=== PATIENT | male | born 1980 | race Caucasian/White ===

== ENCOUNTER 2020-04-23 03:18 | Inpatient (IN) | payer OTHER ==
[~2020-04-23] VITALS: Ht 188 cm; Wt 135.4 kg
[2020-04-23] MEDS ORDERED: NO HOME MEDS (03:35)
[2020-04-23] MEDS ORDERED: morphine 4 MG/ML inj SYRINge IV ONE (03:40)
[2020-04-23] MEDS ORDERED: morphine 2 MG/ML inj. syringe IV PRN (04:25)
--- NOTE | 2020-04-23 06:28 | NUR ---
DR. Carpenter AT BEDSIDE.
--- NOTE | 2020-04-23 06:40 | NUR ---
Patient in room ED 8. I have received report from Lidya in the Ed and had the opportunity to ask questions and assume patient care.
--- NOTE | 2020-04-23 06:54 | NUR ---
Pt arrived to the floor, tucked in
[2020-04-23 06:55] VITALS: BP 150/89
[2020-04-23] MEDS: normal saline 1000ml 1,000 ML IV SCH ×2 (07:20→16:23)
[2020-04-23] MEDS: piperacillin/tazo 3.375gm/50ml 50 ML IV SCH ×2 (08:17→16:20)
[2020-04-23 09:39] LABS: BASOPHILS % (AUTO) 0.3 % (0-1); EOSINOPHILS % (AUTO) 0.1 % (0-6); HEMATOCRIT 42.5 % (42.0-52.0); HEMOGLOBIN 14.4 g/dl (14.0-17.9); LYMPHOCYTES # (AUTO) 0.6 X10'3 (1.1-4.8); LYMPHOCYTES % (AUTO) 5.9 % (21-51); MEAN CORPUSCULAR HEMOGLOBIN 33.1 PG (27.0-31.0); MEAN CORPUSCULAR HGB CONC 33.9 g/dL (33.0-36.5); MEAN CORPUSCULAR VOLUME 97.6 FL (78-98); MEAN PLATELET VOLUME 9.3 FL (7.4-10.4); MONOCYTES # (AUTO) 1.1 X10'3 (0-0.9); MONOCYTES % (AUTO) 10.6 % (2-12); NEUTROPHILS # (AUTO) 8.7 X10'3 (1.8-7.7); NEUTROPHILS % (AUTO) 83.1 % (42-75); PLATELET COUNT 184 X10'3 (140-440); RED BLOOD COUNT 4.35 X10'6 (4.70-6.10); WHITE BLOOD COUNT 10.4 X10'3 (4.5-11.0)
[2020-04-23 10:00] VITALS: BP 130/78
[2020-04-23 10:09] LABS: ALANINE AMINOTRANSFERASE 25 U/L (12-78); ALBUMIN 2.6 G/DL (3.4-5.0); ALBUMIN/GLOBULIN RATIO 0.7 (1.1-1.5); ALKALINE PHOSPHATASE 49 IU/L (46-116); ANION GAP 5 (8-16); ASPARTATE AMINO TRANSFERASE 14 U/L (10-37); BILIRUBIN,TOTAL 0.8 MG/DL (0.1-1.0); BLOOD UREA NITROGEN 10 MG/DL (7-18); BUN/CREATININE RATIO 9.3 (5.4-32.0); CALCIUM 8.1 MG/DL (8.5-10.1); CHLORIDE 102 MMOL/L (99-107); CREATININE 1.07 MG/DL (0.60-1.10); GLUCOSE 122 MG/DL (70-104); POTASSIUM 3.6 MMOL/L (3.5-5.1); SODIUM 136 MMOL/L (135-145); TOTAL CARBON DIOXIDE 28.6 MMOL/L (24-32); TOTAL PROTEIN 6.5 G/DL (6.4-8.2); eGFR 77 ML/MIN
[2020-04-23] MEDS ORDERED: HYDROmorphone inj. 0.5 MG/0.5 ML DISP.SYRIN IV PRN (11:00)
[2020-04-23] MEDS: HYDROmorphone 1 mg/ml syringe IV PRN ×3 (11:13→19:15)
[2020-04-23] MEDS ORDERED: iohexol 300mg/ml 100ml inj. ONE (11:23)
--- NOTE | 2020-04-23 12:24 | NUR ---
PAGER ID: [phone] MESSAGE: [id number] Vicki Anglin- Radiologist Mabel- critical finding will like to speak with you STAT- [phone]. Mer [id number]
--- NOTE | 2020-04-23 12:24 | NUR ---
Received call from Radiology with a critical finding. Paged Dr. Shelton with the number of radiologist Mabel .
[2020-04-23] MEDS: acetaminophen 325mg tablet PO PRN ×2 (16:38→22:03)
[2020-04-23 17:00] VITALS: BP 143/98
--- NOTE | 2020-04-23 18:16 | NUR ---
Problems reprioritized. Patient report given, questions answered & plan of care reviewed with Ignacio.
[2020-04-23 18:46] VITALS: BP 161/94
[2020-04-23 19:31] LABS: PARTIAL THROMBOPLASTIN TIME 29 SECONDS (22-32)
[2020-04-23] MEDS: lactobacillus rhamnosus 10,000 MMU CELLS/CAPSULE PO SCH (20:00)
[2020-04-23 22:00] VITALS: BP 161/94
[2020-04-23] MEDS ORDERED: midazolam 2 mg/2 ml injection ONE (22:37)
[2020-04-23] MEDS ORDERED: fentaNYL /PF 50mcg/ml 5ml ampule ONE (22:37)
[2020-04-23] MEDS ORDERED: rocuronium 10mg/ml inj IV ONE ×3 (22:38→23:17)
[2020-04-23] MEDS ORDERED: dexamethasone sod phosphate 10mg/ml inj ONE (22:38)
[2020-04-23] MEDS ORDERED: sevoflurane 250ml liquid IH ONE (22:38)
[2020-04-23] MEDS ORDERED: albumin (Human) 5% 250ml BOTTLE IV ONE (22:38)
[2020-04-23] MEDS ORDERED: LIDOcaine 2% 5ml jelly ONE (22:58)
[2020-04-23] MEDS ORDERED: propofol inj 20 ML IV ONE (22:58)
[2020-04-23] MEDS ORDERED: LIDOcaine 2% (20mg/ml) 5ml vial ONE (22:58)
[2020-04-23] MEDS ORDERED: famotidine/PF 10 mg/ml inj IV ONE (23:04)
[2020-04-23] MEDS ORDERED: morphine 10mg/ml inj. ONE (23:42)
[2020-04-24] VITALS (22 sets, daily range): BP systolic 132–172; BP diastolic 82–108
[2020-04-24] MEDS ORDERED: sugammadex 200mg/2ml injection IV ONE (00:56)
[2020-04-24] MEDS ORDERED: BUPIVAcaine/PF 2.5 mg/ml (0.25%) 30ml vial ONE (01:08)
[2020-04-24] MEDS ORDERED: BUPIVACAINE liposomal/PF 13.3 MG/ML vial IM ONE (01:08)
[2020-04-24] MEDS ORDERED: meperidine/PF 25mg/ml syringe ONE (01:58)
--- NOTE | 2020-04-24 02:00 | NUR ---
PATIENT ARRIVES FROM O.R. - CONNECTED TO MONITOR, 10 L SIMPLE MASK. VSS, EASILY AROUSABLE BUT VERY GROGGY. MOVES X 4 NO C/O PAIN OR RESP. DISTRESS, AFEBRILE BUT DIAPHORETIC. PATIENT C/O BEING TOO HOT. NORMOTHERMIC, BLANKETS REMOVED AND ROOM TEMP TURNED DOWN WELL FAN IN ROOM. COOL CLOTH TO FORE-HEAD. DENIES PAIN OR NAUSEA . ABDOMINAL DRESSING FROM O.R. IS CDI, NO VISABLE SHADOWING ON THE DRESSING. ABDOMEN MILDLY DISTENDED. TENDER TO TOUCH. CHRISTOS DRAIN X1 FROM BENEATH THE DRESSING. 100 ML SERO/SANGUANOUS EMPTIED. LEFT NARE NGT TO LWSXN PER ORDER - SMALL AMOUNT BLOODY DRAINAGE. PER REPORT FROM O.RJanina RN, HICKMAN WAS RECENTLY PLACED BEFORE COMING TO ICU. PIV X 2. NS IVMF AT 150 ML/HR VIA LEFT HAND # 20 PIV. RIGHT A/C PIV PLACED AT [facility] - NO COLOR SO UNK GAUGE. FLUSHED WITHOUT DIFFICULTY, CLAMPED AND CAPPED. BACK INTACT. SMEAR BROWN STOOL . OPTIFOAM TO COCCYX FOR PROTECTION. 2 RN SKIN ASSESSMENT UPON TRANSFER COMPLETED. BELONGINGS LIST UP ON TRANSFER COMPLETE. ICU ROUTINE EXPLAINED. ALL QUESTIONS ANSWERED. SUPPORT GIVEN. FREQUENTLY REORIENTED AFTER WAKING FROM SLEEP DUE TO SLIGHTLY CONFUSED FOR A MOMENT UPON WAKING.
[2020-04-24] MEDS ORDERED: acetaminophen 1,000mg/100ml IV 100 ML IV PRN ×2 (02:05→11:15)
[2020-04-24] MEDS ORDERED: ringers solution, lacted 1,000 ML IV SCH (02:05)
[2020-04-24] MEDS ORDERED: meperidine/PF 25mg/ml syringe IV PRN ×3 (02:05)
[2020-04-24] MEDS ORDERED: ondansetron/PF 4mg/2ml inj IV PRN (02:05)
[2020-04-24] MEDS ORDERED: hydrALAZINE 20mg/ml inj. IV PRN (02:05)
[2020-04-24] MEDS ORDERED: labetalol 20mg/4ml (5mg/ml) syringe IV PRN (02:05)
[2020-04-24] MEDS ORDERED: proCHLORperazine 10 MG/2 ml inj IV PRN (02:05)
[2020-04-24] MEDS ORDERED: morphine 4 MG/ML inj SYRINge IV PRN (02:05)
[2020-04-24] MEDS ORDERED: morphine 2 MG/ML inj. syringe IV PRN (02:05)
[2020-04-24] MEDS: normal saline 1000ml 1,000 ML IV SCH ×4 (02:31→21:24)
[2020-04-24] MEDS: ondansetron/PF 4mg/2ml inj IV PRN ×3 (02:41→19:03)
[2020-04-24] MEDS: HYDROmorphone 1 mg/ml syringe IV PRN ×6 (02:52→23:52)
[2020-04-24] MEDS: piperacillin/tazo 3.375gm/50ml 50 ML IV SCH ×4 (03:32→23:54)
[2020-04-24 05:30] LABS: BASOPHILS # (AUTO) 0.1 X10'3 (0-0.2); BASOPHILS % (AUTO) 0.6 % (0-1); EOSINOPHILS % (AUTO) 0 % (0-6); HEMATOCRIT 45.7 % (42.0-52.0); HEMOGLOBIN 15.1 g/dl (14.0-17.9); LYMPHOCYTES # (AUTO) 0.5 X10'3 (1.1-4.8); LYMPHOCYTES % (AUTO) 4.8 % (21-51); MEAN CORPUSCULAR HEMOGLOBIN 32.8 PG (27.0-31.0); MEAN CORPUSCULAR VOLUME 99.2 FL (78-98); MEAN PLATELET VOLUME 9.5 FL (7.4-10.4); MONOCYTES # (AUTO) 0.8 X10'3 (0-0.9); MONOCYTES % (AUTO) 7.9 % (2-12); NEUTROPHILS # (AUTO) 8.3 X10'3 (1.8-7.7); NEUTROPHILS % (AUTO) 86.7 % (42-75); PLATELET COUNT 182 X10'3 (140-440); RED CELL DISTRIBUTION WIDTH 13.4 % (11.5-14.5); WHITE BLOOD COUNT 9.6 X10'3 (4.5-11.0)
[2020-04-24 05:50] LABS: ALANINE AMINOTRANSFERASE 18 U/L (12-78); ALBUMIN 2.1 G/DL (3.4-5.0); ALBUMIN/GLOBULIN RATIO 0.6 (1.1-1.5); ALKALINE PHOSPHATASE 43 IU/L (46-116); ANION GAP 8 (8-16); ASPARTATE AMINO TRANSFERASE 12 U/L (10-37); BILIRUBIN,TOTAL 0.6 MG/DL (0.1-1.0); BLOOD UREA NITROGEN 10 MG/DL (7-18); BUN/CREATININE RATIO 10.2 (5.4-32.0); CALCIUM 7.5 MG/DL (8.5-10.1); CHLORIDE 107 MMOL/L (99-107); CREATININE 0.98 MG/DL (0.60-1.10); GLUCOSE 154 MG/DL (70-104); POTASSIUM 3.7 MMOL/L (3.5-5.1); SODIUM 139 MMOL/L (135-145); TOTAL CARBON DIOXIDE 23.9 MMOL/L (24-32); TOTAL PROTEIN 5.5 G/DL (6.4-8.2); eGFR 86 ML/MIN
--- NOTE | 2020-04-24 06:14 | NUR ---
Patient in room ICU 2039. I have received report from Cody LANDEROS and had the opportunity to ask questions and assume patient care.
[2020-04-24] MEDS: lactobacillus rhamnosus 10,000 MMU CELLS/CAPSULE PO SCH ×2 (07:35→19:03)
[2020-04-24] MEDS: fluconazole-Diflucan 200mg/NS 100 ML IV SCH (10:27)
[2020-04-24] MEDS ORDERED: acetaminophen 650mg rectal suppository RC PRN (11:15)
--- NOTE | 2020-04-24 11:25 | NUR ---
Pt transferred from [facility] for evaluation of diverticulitis with microperforation and abscess per H&P. Pt s/p lysis of adhesions and sigmoid resection with colostomy 04/23. Pt would benefit from colostomy nutrition therapy education once stable. Per [employer] notes pt was successfully extubated per anesthesia prior to transferring to critical care. Pt currently NPO, recommend diet advancement to low fiber/low residue as medically indicated in view of recent GI surgery. Will continue to follow and provide education once appropriate. Recommendations: 1) Advance to low fiber/low residue diet as medically indicated in view of recent GI surgery 2) Scaled weights per rx 3) Colostomy nutrition therapy education once stable Addendum: 04/24/20 at [address] Amended: Links added.
[2020-04-24] MEDS ORDERED: ibuprofen tablet 400 MG TABLET PO PRN (12:05)
--- NOTE | 2020-04-24 17:04 | NUR ---
Received report from LETI Broussard. awaiting patient arrival.
--- NOTE | 2020-04-24 17:10 | NUR ---
Problems reprioritized. Patient report given, questions answered & plan of care reviewed with Radha LANDEROS.
--- NOTE | 2020-04-24 17:26 | NUR ---
patient arrived to floor. vss, no complaints of pain. dressings CDI. CHRISTOS bulb emptied, FC emptied.
--- NOTE | 2020-04-24 18:24 | NUR ---
Problems reprioritized. Patient report given, questions answered & plan of care reviewed with LETI Pierre.
[2020-04-25] VITALS: BP 152/96
[2020-04-25] MEDS: ondansetron/PF 4mg/2ml inj IV PRN ×2 (03:00→09:35)
[2020-04-25] MEDS: HYDROmorphone 1 mg/ml syringe IV PRN ×2 (03:42→08:22)
[2020-04-25] MEDS: normal saline 1000ml 1,000 ML IV SCH ×4 (03:45→22:54)
--- NOTE | 2020-04-25 03:47 | NUR ---
Patient refused to have santacruz catheter remain. Educated on risks of premature removal and patient verbalized understanding and still requested it be removed. Deflated 10ml out of balloon and removed. Patient was instructed on safe urinal use. Will continue to monitor.
[2020-04-25 05:19] LABS: BASOPHILS % (AUTO) 0.2 % (0-1); EOSINOPHILS # (AUTO) 0.1 X10'3 (0-0.9); EOSINOPHILS % (AUTO) 0.5 % (0-6); HEMATOCRIT 45.9 % (42.0-52.0); LYMPHOCYTES # (AUTO) 0.7 X10'3 (1.1-4.8); LYMPHOCYTES % (AUTO) 5.2 % (21-51); MEAN CORPUSCULAR HEMOGLOBIN 32.7 PG (27.0-31.0); MEAN CORPUSCULAR HGB CONC 32.8 g/dL (33.0-36.5); MEAN CORPUSCULAR VOLUME 99.8 FL (78-98); MEAN PLATELET VOLUME 9.4 FL (7.4-10.4); MONOCYTES # (AUTO) 0.9 X10'3 (0-0.9); MONOCYTES % (AUTO) 6.9 % (2-12); NEUTROPHILS # (AUTO) 11.3 X10'3 (1.8-7.7); NEUTROPHILS % (AUTO) 87.2 % (42-75); PLATELET COUNT 281 X10'3 (140-440); RED CELL DISTRIBUTION WIDTH 13.4 % (11.5-14.5); WHITE BLOOD COUNT 12.9 X10'3 (4.5-11.0)
[2020-04-25 05:31] LABS: ALANINE AMINOTRANSFERASE 17 U/L (12-78); ALBUMIN 2.2 G/DL (3.4-5.0); ALBUMIN/GLOBULIN RATIO 0.5 (1.1-1.5); ALKALINE PHOSPHATASE 57 IU/L (46-116); ANION GAP 12 (8-16); ASPARTATE AMINO TRANSFERASE 16 U/L (10-37); BILIRUBIN,TOTAL 0.4 MG/DL (0.1-1.0); BLOOD UREA NITROGEN 10 MG/DL (7-18); BUN/CREATININE RATIO 11.1 (5.4-32.0); CHLORIDE 104 MMOL/L (99-107); GLUCOSE 146 MG/DL (70-104); POTASSIUM 3.7 MMOL/L (3.5-5.1); SODIUM 139 MMOL/L (135-145); TOTAL CARBON DIOXIDE 23.1 MMOL/L (24-32); TOTAL PROTEIN 6.4 G/DL (6.4-8.2); eGFR > 90 ML/MIN
[2020-04-25 08:00] VITALS: BP 153/93
[2020-04-25] MEDS: fluconazole-Diflucan 200mg/NS 100 ML IV SCH (08:27)
[2020-04-25] MEDS: lactobacillus rhamnosus 10,000 MMU CELLS/CAPSULE PO SCH ×2 (08:33→19:28)
[2020-04-25] MEDS: piperacillin/tazo 3.375gm/50ml 50 ML IV SCH ×3 (09:29→22:56)
--- NOTE | 2020-04-25 10:05 | NUR ---
patient refused to have santacruz catheter in place. Noc shift RN removed catheter. patient is urinating without difficulty this AM. Clarified with MD that its okay to cancel santacruz order.
[2020-04-25 11:30] VITALS: BP 162/101
[2020-04-25 11:57] VITALS: BP 169/98
--- NOTE | 2020-04-25 11:57 | NUR ---
PAGER ID: [phone] MESSAGE: [phone] Mauro Cohen: patient has had increased BP and HR trending for a while ...would you like any new orders? arie 2014
[2020-04-25] MEDS ORDERED: naloxone 0.4 mg/ml inj IV PRN (12:55)
[2020-04-25] MEDS: HYDROmorphone/NS 1 mg/ml CADD 50 ML IV SCH ×6 (14:00→23:00)
--- NOTE | 2020-04-25 14:58 | NUR ---
PAGER ID: [phone] MESSAGE: [phone] Chambers, N : + culture peritoneal fluid- few colonies of budding yeast. arie [phone]
[2020-04-25] MEDS ORDERED: diatr meglu/diatrizoate 30ml oral sol.-(3 dose) bottle PO SCH (15:00)
[2020-04-25] MEDS: metoprolol tartrate 25mg tablet PO SCH ×2 (15:56→18:52)
[2020-04-25 18:00] VITALS: BP 146/100
--- NOTE | 2020-04-25 18:30 | NUR ---
Problems reprioritized. Patient report given, questions answered & plan of care reviewed with LETI VAZQUEZ.
--- NOTE | 2020-04-25 18:31 | NUR ---
Student documentation: I have reviewed and agree with all interventions, assessments performed and documented by SN SHAHLA. Student Medication Administration: For this medication-pass time frame, all medication were reviewed, dispensed, administered and documented per hospital policy by SN SHAHLA.
--- NOTE | 2020-04-25 18:34 | NUR ---
Patient in room [facility] 344. I have received report from Sheela LANDEROS and had the opportunity to ask questions and assume patient care.
[2020-04-25] MEDS: enoxaparin 40mg/0.4ml syringe SUBCUT SCH (19:30)
[2020-04-25 20:00] VITALS: BP 142/92
--- NOTE | 2020-04-25 20:00 | NUR ---
Lopressor given at 1600. call pharmacy. pharmacist said to hold tonights Lopressor dose.
[2020-04-26] VITALS: BP 145/96
[2020-04-26] MEDS: HYDROmorphone/NS 1 mg/ml CADD 50 ML IV SCH ×12 (01:00→23:00)
[2020-04-26 05:11] LABS: BASOPHILS % (AUTO) 0.2 % (0-1); EOSINOPHILS # (AUTO) 0.2 X10'3 (0-0.9); EOSINOPHILS % (AUTO) 1.4 % (0-6); HEMATOCRIT 44.7 % (42.0-52.0); HEMOGLOBIN 14.4 g/dl (14.0-17.9); LYMPHOCYTES % (AUTO) 8.8 % (21-51); MEAN CORPUSCULAR HEMOGLOBIN 32.1 PG (27.0-31.0); MEAN CORPUSCULAR HGB CONC 32.3 g/dL (33.0-36.5); MEAN CORPUSCULAR VOLUME 99.6 FL (78-98); MONOCYTES # (AUTO) 0.9 X10'3 (0-0.9); MONOCYTES % (AUTO) 7.9 % (2-12); NEUTROPHILS # (AUTO) 9.4 X10'3 (1.8-7.7); NEUTROPHILS % (AUTO) 81.7 % (42-75); PLATELET COUNT 332 X10'3 (140-440); RED BLOOD COUNT 4.48 X10'6 (4.70-6.10); RED CELL DISTRIBUTION WIDTH 13.7 % (11.5-14.5); WHITE BLOOD COUNT 11.5 X10'3 (4.5-11.0)
[2020-04-26 05:27] LABS: ALANINE AMINOTRANSFERASE 17 U/L (12-78); ALBUMIN 2.1 G/DL (3.4-5.0); ALBUMIN/GLOBULIN RATIO 0.5 (1.1-1.5); ALKALINE PHOSPHATASE 48 IU/L (46-116); ANION GAP 4 (8-16); ASPARTATE AMINO TRANSFERASE 20 U/L (10-37); BILIRUBIN,TOTAL 0.4 MG/DL (0.1-1.0); BLOOD UREA NITROGEN 12 MG/DL (7-18); BUN/CREATININE RATIO 11.4 (5.4-32.0); CALCIUM 8.3 MG/DL (8.5-10.1); CHLORIDE 105 MMOL/L (99-107); CREATININE 1.05 MG/DL (0.60-1.10); GLUCOSE 123 MG/DL (70-104); POTASSIUM 3.6 MMOL/L (3.5-5.1); SODIUM 141 MMOL/L (135-145); TOTAL CARBON DIOXIDE 31.7 MMOL/L (24-32); TOTAL PROTEIN 6.2 G/DL (6.4-8.2); eGFR 79 ML/MIN
--- NOTE | 2020-04-26 06:22 | NUR ---
Problems reprioritized. Patient report given, questions answered & plan of care reviewed with Sheela LANDEROS.
[2020-04-26] MEDS: fluconazole-Diflucan 200mg/NS 100 ML IV SCH (07:10)
[2020-04-26] MEDS: lactobacillus rhamnosus 10,000 MMU CELLS/CAPSULE PO SCH ×2 (07:10→19:46)
[2020-04-26] MEDS: piperacillin/tazo 3.375gm/50ml 50 ML IV SCH ×2 (07:10→16:47)
[2020-04-26] MEDS: metoprolol tartrate 25mg tablet PO SCH ×2 (07:12→19:47)
[2020-04-26 08:03] VITALS: BP 144/102
[2020-04-26] MEDS: normal saline 1000ml 1,000 ML IV SCH ×2 (09:02→17:58)
[2020-04-26 11:50] VITALS: BP 140/97
--- NOTE | 2020-04-26 18:03 | NUR ---
Student documentation: I have reviewed and agree with all interventions, assessments performed and documented by SN Evelia. Student Medication Administration: For this medication-pass time frame, all medication were reviewed, dispensed, administered and documented per hospital policy by SN Evelia.
--- NOTE | 2020-04-26 18:17 | NUR ---
Problems reprioritized. Patient report given, questions answered & plan of care reviewed with LETI Coronado.
--- NOTE | 2020-04-26 19:32 | NUR ---
Patient in room [facility] 344. I have received report from Sheela LANDEROS and had the opportunity to ask questions and assume patient care.
[2020-04-26] MEDS: metoclopramide 5 mg/ml inj IV SCH (19:46)
[2020-04-26] MEDS: enoxaparin 40mg/0.4ml syringe SUBCUT SCH (19:48)
[2020-04-26 20:00] VITALS: BP 146/107
[2020-04-26 23:00] VITALS: BP 153/94
[2020-04-27] VITALS: BP 153/93
[2020-04-27] MEDS: piperacillin/tazo 3.375gm/50ml 50 ML IV SCH ×4 (00:01→23:51)
[2020-04-27] MEDS: HYDROmorphone/NS 1 mg/ml CADD 50 ML IV SCH ×12 (01:00→23:00)
[2020-04-27] MEDS: metoclopramide 5 mg/ml inj IV SCH ×4 (01:45→19:39)
[2020-04-27] MEDS: normal saline 1000ml 1,000 ML IV SCH ×3 (01:46→22:10)
[2020-04-27 05:14] LABS: ALBUMIN 2.1 G/DL (3.4-5.0); ANION GAP 5 (8-16); BLOOD UREA NITROGEN 14 MG/DL (7-18); BUN/CREATININE RATIO 13.7 (5.4-32.0); CALCIUM 8.3 MG/DL (8.5-10.1); CHLORIDE 105 MMOL/L (99-107); CREATININE 1.02 MG/DL (0.60-1.10); GLUCOSE 109 MG/DL (70-104); HEMOGLOBIN 13.5 g/dl (14.0-17.9); MEAN CORPUSCULAR HGB CONC 33.5 g/dL (33.0-36.5); POTASSIUM 3.1 MMOL/L (3.5-5.1); SODIUM 144 MMOL/L (135-145); TOTAL CARBON DIOXIDE 34.5 MMOL/L (24-32); eGFR 82 ML/MIN
[2020-04-27 05:17] LABS: BASOPHILS # (AUTO) 0.1 X10'3 (0-0.2); BASOPHILS % (AUTO) 0.5 % (0-1); EOSINOPHILS # (AUTO) 0.2 X10'3 (0-0.9); EOSINOPHILS % (AUTO) 1.3 % (0-6); HEMATOCRIT 40.2 % (42.0-52.0); LYMPHOCYTES % (AUTO) 9.1 % (21-51); MEAN CORPUSCULAR VOLUME 98.4 FL (78-98); MEAN PLATELET VOLUME 8.9 FL (7.4-10.4); MONOCYTES % (AUTO) 8.3 % (2-12); NEUTROPHILS # (AUTO) 9.3 X10'3 (1.8-7.7); NEUTROPHILS % (AUTO) 80.8 % (42-75); PLATELET COUNT 348 X10'3 (140-440); RED BLOOD COUNT 4.08 X10'6 (4.70-6.10); RED CELL DISTRIBUTION WIDTH 13.6 % (11.5-14.5); WHITE BLOOD COUNT 11.5 X10'3 (4.5-11.0)
--- NOTE | 2020-04-27 06:25 | NUR ---
Problems reprioritized. Patient report given, questions answered & plan of care reviewed with García RN.
--- NOTE | 2020-04-27 06:30 | NUR ---
Patient in room MIKAL 344. I have received report from GEORGE LANDEROS and had the opportunity to ask questions and assume patient care.
--- NOTE | 2020-04-27 06:45 | NUR ---
Patient in room MIKAL 344. I have received report from García LANDEROS and had the opportunity to ask questions and assume patient care.
[2020-04-27 07:21] LABS: PLATELET ESTIMATE NORMAL; TOTAL CELLS COUNTED 100
[2020-04-27] MEDS: fluconazole-Diflucan 200mg/NS 100 ML IV SCH (07:51)
[2020-04-27] MEDS: lactobacillus rhamnosus 10,000 MMU CELLS/CAPSULE PO SCH ×2 (07:54→19:39)
[2020-04-27] MEDS: metoprolol tartrate 25mg tablet PO SCH ×2 (07:56→19:41)
[2020-04-27 08:17] VITALS: BP 163/101
[2020-04-27] MEDS ORDERED: hydrALAZINE 20mg/ml inj. IV PRN (09:40)
[2020-04-27 12:26] VITALS: BP 135/87
[2020-04-27] MEDS: micafungin inj 100 MG in normal saline 100ml IV soln 100 ML IV SCH (13:44)
[2020-04-27 15:00] VITALS: BP 147/88
[2020-04-27] MEDS ORDERED: potassium CL 10mEq/100ml bag 100 ML IV PRN (16:25)
[2020-04-27] MEDS ORDERED: magnesium Cl slow-release 64mg tablet PO PRN (16:25)
[2020-04-27] MEDS ORDERED: magnesium 4gm in 100ml NS 100 ML IV PRN (16:25)
[2020-04-27] MEDS ORDERED: potassium Cl 20 mEq SR tablet PO PRN (16:25)
--- NOTE | 2020-04-27 17:56 | NUR ---
Problems reprioritized. Patient report given, questions answered & plan of care reviewed with GEORGE LANDEROS.
--- NOTE | 2020-04-27 18:50 | NUR ---
Patient in room MIKAL 344. I have received report from García LANDEROS and had the opportunity to ask questions and assume patient care.
[2020-04-27 19:25] VITALS: BP 152/91
[2020-04-27] MEDS: enoxaparin 40mg/0.4ml syringe SUBCUT SCH (19:42)
[2020-04-27] MEDS: potassium Cl 20 mEq SR tablet PO PRN (23:47)
[2020-04-28] VITALS: BP 148/88
[2020-04-28] MEDS: HYDROmorphone/NS 1 mg/ml CADD 50 ML IV SCH ×12 (01:00→23:00)
[2020-04-28] MEDS: metoclopramide 5 mg/ml inj IV SCH ×4 (02:06→19:29)
[2020-04-28 04:26] LABS: BASOPHILS # (AUTO) 0.1 X10'3 (0-0.2); BASOPHILS % (AUTO) 0.5 % (0-1); EOSINOPHILS # (AUTO) 0.2 X10'3 (0-0.9); EOSINOPHILS % (AUTO) 1.7 % (0-6); HEMATOCRIT 40.4 % (42.0-52.0); HEMOGLOBIN 13.3 g/dl (14.0-17.9); LYMPHOCYTES # (AUTO) 1.2 X10'3 (1.1-4.8); LYMPHOCYTES % (AUTO) 10.2 % (21-51); MEAN CORPUSCULAR HEMOGLOBIN 32.4 PG (27.0-31.0); MEAN CORPUSCULAR HGB CONC 32.9 g/dL (33.0-36.5); MEAN CORPUSCULAR VOLUME 98.3 FL (78-98); MEAN PLATELET VOLUME 8.8 FL (7.4-10.4); MONOCYTES # (AUTO) 0.8 X10'3 (0-0.9); MONOCYTES % (AUTO) 6.5 % (2-12); NEUTROPHILS # (AUTO) 9.8 X10'3 (1.8-7.7); NEUTROPHILS % (AUTO) 81.1 % (42-75); PLATELET COUNT 340 X10'3 (140-440); RED BLOOD COUNT 4.11 X10'6 (4.70-6.10); RED CELL DISTRIBUTION WIDTH 13.7 % (11.5-14.5); WHITE BLOOD COUNT 12.1 X10'3 (4.5-11.0)
[2020-04-28 04:37] LABS: ANION GAP 5 (8-16); BLOOD UREA NITROGEN 11 MG/DL (7-18); BUN/CREATININE RATIO 13.4 (5.4-32.0); CALCIUM 8.2 MG/DL (8.5-10.1); CHLORIDE 106 MMOL/L (99-107); CREATININE 0.82 MG/DL (0.60-1.10); GLUCOSE 106 MG/DL (70-104); POTASSIUM 3.4 MMOL/L (3.5-5.1); SODIUM 143 MMOL/L (135-145); TOTAL CARBON DIOXIDE 31.7 MMOL/L (24-32); eGFR > 90 ML/MIN
--- NOTE | 2020-04-28 06:46 | NUR ---
Patient in room MIKAL 344. I have received report from ALIDA LANDEROS and had the opportunity to ask questions and assume patient care.
--- NOTE | 2020-04-28 07:07 | NUR ---
Problems reprioritized. Patient report given, questions answered & plan of care reviewed with García RN.
[2020-04-28 07:58] VITALS: BP 140/84
[2020-04-28] MEDS: micafungin inj 100 MG in normal saline 100ml IV soln 100 ML IV SCH (10:08)
[2020-04-28] MEDS: metoprolol tartrate 25mg tablet PO SCH ×2 (10:10→19:33)
[2020-04-28] MEDS: normal saline 1000ml 1,000 ML IV SCH ×2 (10:10→19:55)
[2020-04-28] MEDS: lactobacillus rhamnosus 10,000 MMU CELLS/CAPSULE PO SCH ×2 (10:10→19:30)
[2020-04-28] MEDS: piperacillin/tazo 3.375gm/50ml 50 ML IV SCH ×2 (10:17→16:18)
--- NOTE | 2020-04-28 16:20 | NUR ---
Retrieved from pts EMR: Pt is a 39-year-old male who presented from [facility] for evaluation of diverticulitis, microperforation and abscess. Pt had surgery on 04/23/[address] Ayala, who performed sigmoid resection with colostomy. He also has postop ileus now with NG tube to suction. Pt has minimal medical history, includes tonsillectomy, bilateral shoulder surgery and marijuana use. Pt labs show high WBC at 12.1 and low albumin 2.0. Wound care consulted for: New Ostomy Wound care bedside to see pt. Pt gave verbal consent for examination. Pt seen with NG to suction, lots of dark green drainage. Pt also have a lot of gas belching. Ostomy appears to be of a dark red color at this time. Minimal liquid drainage in bag. Pt was quickly oriented to wound care process and need for ostomy teaching. Pt was advisable and will need to be educated on proper ostomy use. Will follow up with pt at later date. Addendum: 04/28/20 at 1620 by Dang Meade RN Amended: Links added.
--- NOTE | 2020-04-28 16:33 | NUR ---
Initial: Pt admit w/ sigmoid perforation and sepsis s/p sigmoid resection and colostomy placement per EMR. Day 5 NPO this admit. Ileus per MD note. 200ml colostomy output past 24 hours receiving reglan w/ NG in place to suction -800ml output so far today per RN down from -2050ml output yesterday in EMR. RN reports pt has been sneaking PO water from fountain during walks in addition to current ice chips/popsicle PO. Likely to increase NG output as well. RN reports pt likely to trial NG clamp today. RD d/w RN regarding advancement of PO diet if MD agreeable given functional gut w/ colostomy output. Pt seen by RD for written/verbal colostomy diet ed w/ RD contact information provided. RD also provided fiber content of foods list to complement colostomy ed. Pt reports not questions at this time. Will continue to monitor for PO diet advancement as medically indicated post-op. Recommendations: 1) Advance to low fiber/low residue diet as medically indicated post-op w/ functional colostomy output 2) monitor for ONS needs once PO 3) bowel care per rx; promotility agent per surgeon post-op 4) Scaled weights per rx Addendum: 04/28/20 at [address] Amended: Links added.
[2020-04-28 17:36] VITALS: BP 128/80
[2020-04-28 18:30] VITALS: BP 134/88
--- NOTE | 2020-04-28 18:30 | NUR ---
Received report from primary care nurse García RN. Patient is awake and alert on room air. In no apparent distress. NG hooked up to low intermittent suction and secure to gown. CHRISTOS secured to gown. Colostomy draining green stool. Call light and items of frequent use within reach. Will continue to monitor for changes. Addendum: 04/29/20 at 0224 by Daisy Lin RN Received report from primary care nurse García RN. Patient is awake and alert on room air. In no apparent distress. NG hooked up to low continuous suction and secure to gown. CHRISTOS secured to gown. Colostomy draining green stool. Call light and items of frequent use within reach. Will continue to monitor for changes.
--- NOTE | 2020-04-28 18:45 | NUR ---
Problems reprioritized. Patient report given, questions answered & plan of care reviewed with Daisy LANDEROS.
[2020-04-28] MEDS: enoxaparin 40mg/0.4ml syringe SUBCUT SCH (19:30)
[2020-04-29] VITALS: BP 136/84
[2020-04-29] MEDS: piperacillin/tazo 3.375gm/50ml 50 ML IV SCH ×3 (00:18→16:15)
[2020-04-29] MEDS: HYDROmorphone/NS 1 mg/ml CADD 50 ML IV SCH ×12 (01:00→23:00)
[2020-04-29] MEDS: metoclopramide 5 mg/ml inj IV SCH ×4 (02:08→19:18)
[2020-04-29] MEDS: normal saline 1000ml 1,000 ML IV SCH ×2 (05:52→16:13)
[2020-04-29 06:08] LABS: ALBUMIN 2.3 G/DL (3.4-5.0); ANION GAP 9 (8-16); BLOOD UREA NITROGEN 9 MG/DL (7-18); BUN/CREATININE RATIO 11.5 (5.4-32.0); CALCIUM 8.4 MG/DL (8.5-10.1); CHLORIDE 104 MMOL/L (99-107); CREATININE 0.78 MG/DL (0.60-1.10); GLUCOSE 92 MG/DL (70-104); POTASSIUM 3.4 MMOL/L (3.5-5.1); SODIUM 141 MMOL/L (135-145); TOTAL CARBON DIOXIDE 28.5 MMOL/L (24-32); eGFR > 90 ML/MIN
[2020-04-29 06:12] LABS: BASOPHILS % (AUTO) 0.3 % (0-1); EOSINOPHILS # (AUTO) 0.3 X10'3 (0-0.9); EOSINOPHILS % (AUTO) 3.3 % (0-6); HEMATOCRIT 43.7 % (42.0-52.0); HEMOGLOBIN 14.5 g/dl (14.0-17.9); LYMPHOCYTES % (AUTO) 9.9 % (21-51); MEAN CORPUSCULAR HEMOGLOBIN 32.8 PG (27.0-31.0); MEAN CORPUSCULAR HGB CONC 33.2 g/dL (33.0-36.5); MEAN CORPUSCULAR VOLUME 98.8 FL (78-98); MEAN PLATELET VOLUME 9.2 FL (7.4-10.4); MONOCYTES # (AUTO) 0.5 X10'3 (0-0.9); MONOCYTES % (AUTO) 4.8 % (2-12); NEUTROPHILS # (AUTO) 8.3 X10'3 (1.8-7.7); NEUTROPHILS % (AUTO) 81.7 % (42-75); PLATELET COUNT 334 X10'3 (140-440); RED BLOOD COUNT 4.42 X10'6 (4.70-6.10); RED CELL DISTRIBUTION WIDTH 13.5 % (11.5-14.5); WHITE BLOOD COUNT 10.2 X10'3 (4.5-11.0)
[2020-04-29 07:00] VITALS: BP 149/97
[2020-04-29] MEDS: lactobacillus rhamnosus 10,000 MMU CELLS/CAPSULE PO SCH ×2 (08:35→19:19)
[2020-04-29] MEDS: potassium Cl 20 mEq SR tablet PO PRN ×2 (08:36→15:13)
[2020-04-29] MEDS: metoprolol tartrate 25mg tablet PO SCH ×2 (08:36→19:23)
[2020-04-29] MEDS: micafungin inj 100 MG in normal saline 100ml IV soln 100 ML IV SCH (08:50)
[2020-04-29 11:00] VITALS: BP 157/94
[2020-04-29] MEDS: CADD PCA waste documentation MC PRN (16:04)
--- NOTE | 2020-04-29 16:12 | NUR ---
Wound care at bedside to see pt. Pt gave verbal consent to be seen. Pt was given stoma education packet. Pt was taught bag dressing change process from start to finish, how to measure stoma, how to apply wafer, how to seal bag, how to empty bag, how to care for surrounding skin, how to use skin barrier products, and advised of available resources. Pt was attentive to all teaching efforts, responded well and used mirror to see process. Will attempt to re-visit at later time to walk through crusting procedure and skin problems. Addendum: 04/29/20 at 1614 by Dang Meade RN Amended: Links added.
--- NOTE | 2020-04-29 18:13 | NUR ---
Received report from primary care nurse García RN. Assumed patient care. Patient is awake and alert on room air playing on his phone. In no apparent distress. Call light and items of frequent use within reach. Will continue to monitor for changes.
--- NOTE | 2020-04-29 18:32 | NUR ---
Problems reprioritized. Patient report given, questions answered & plan of care reviewed with Daisy LANDEROS.
[2020-04-29 19:00] VITALS: BP 154/86
[2020-04-29] MEDS: enoxaparin 40mg/0.4ml syringe SUBCUT SCH (19:19)
[2020-04-29] MEDS ORDERED: chlorproMAZINE 25mg tablet PO PRN (20:45)
[2020-04-30] VITALS: BP 149/83
[2020-04-30] MEDS: piperacillin/tazo 3.375gm/50ml 50 ML IV SCH ×4 (00:03→23:19)
[2020-04-30] MEDS: normal saline 1000ml 1,000 ML IV SCH ×3 (00:08→22:55)
[2020-04-30] MEDS: HYDROmorphone/NS 1 mg/ml CADD 50 ML IV SCH ×7 (01:00→13:00)
--- NOTE | 2020-04-30 02:10 | NUR ---
Phoned pharmacy regarding possible interaction between Reglan and Thorazine. Pharmacist confirmed. Explained risks to patient. Patient said, "I dont care I dont want these hiccups." "MD needs to be notified today during rounds," per pharmacy.
[2020-04-30] MEDS: metoclopramide 5 mg/ml inj IV SCH ×4 (02:29→19:35)
--- NOTE | 2020-04-30 06:43 | NUR ---
Reported off to Betsey RN. Patient is awake and alert on room air. In no apparent distress. Call light and items of frequent use within reach.
[2020-04-30] MEDS: lactobacillus rhamnosus 10,000 MMU CELLS/CAPSULE PO SCH ×2 (07:47→19:35)
[2020-04-30] MEDS: metoprolol tartrate 25mg tablet PO SCH ×2 (07:48→19:37)
[2020-04-30 08:00] VITALS: BP 152/92
[2020-04-30] MEDS: micafungin inj 100 MG in normal saline 100ml IV soln 100 ML IV SCH (08:24)
[2020-04-30 10:39] LABS: BASOPHILS # (AUTO) 0.1 X10'3 (0-0.2); EOSINOPHILS # (AUTO) 0.3 X10'3 (0-0.9); EOSINOPHILS % (AUTO) 3.8 % (0-6); HEMATOCRIT 38.3 % (42.0-52.0); HEMOGLOBIN 12.8 g/dl (14.0-17.9); LYMPHOCYTES % (AUTO) 12.1 % (21-51); MEAN CORPUSCULAR HGB CONC 33.4 g/dL (33.0-36.5); MEAN CORPUSCULAR VOLUME 98.9 FL (78-98); MEAN PLATELET VOLUME 9.5 FL (7.4-10.4); MONOCYTES # (AUTO) 0.6 X10'3 (0-0.9); MONOCYTES % (AUTO) 7.2 % (2-12); NEUTROPHILS # (AUTO) 6.4 X10'3 (1.8-7.7); NEUTROPHILS % (AUTO) 75.9 % (42-75); PLATELET COUNT 353 X10'3 (140-440); RED BLOOD COUNT 3.87 X10'6 (4.70-6.10); RED CELL DISTRIBUTION WIDTH 13.8 % (11.5-14.5); WHITE BLOOD COUNT 8.4 X10'3 (4.5-11.0)
[2020-04-30 10:53] LABS: ALANINE AMINOTRANSFERASE 34 U/L (12-78); ALBUMIN/GLOBULIN RATIO 0.5 (1.1-1.5); ALKALINE PHOSPHATASE 56 IU/L (46-116); ANION GAP 8 (8-16); ASPARTATE AMINO TRANSFERASE 33 U/L (10-37); BILIRUBIN,TOTAL 0.8 MG/DL (0.1-1.0); BLOOD UREA NITROGEN 7 MG/DL (7-18); BUN/CREATININE RATIO 9.1 (5.4-32.0); CALCIUM 7.9 MG/DL (8.5-10.1); CHLORIDE 104 MMOL/L (99-107); CREATININE 0.77 MG/DL (0.60-1.10); GLUCOSE 91 MG/DL (70-104); POTASSIUM 3.4 MMOL/L (3.5-5.1); SODIUM 137 MMOL/L (135-145); TOTAL CARBON DIOXIDE 25.4 MMOL/L (24-32); TOTAL PROTEIN 5.7 G/DL (6.4-8.2); eGFR > 90 ML/MIN
[2020-04-30 11:00] VITALS: BP 134/86
[2020-04-30] MEDS: potassium Cl 20 mEq SR tablet PO PRN ×2 (11:22→20:51)
--- NOTE | 2020-04-30 12:09 | NUR ---
Education given to patient regarding ostomy care and drainage. Educated on changing appliance if it leaks. Emptying bag when half full. Educated on skin care if any irritation starts, Use of powder and barrier to create a crust which will aid in healing, and allowing the appliance to adhere to the skin. Patient reports understanding. We will check in on Sunday and change appliance. Addendum: 04/30/20 at 1217 by Venita Bethea RN Amended: Links added.
--- NOTE | 2020-04-30 15:23 | NUR ---
Reassessment: Patient now day seven NPO however NG tube discontinued and diet now advanced to clear liquids. Pending first meal since diet advancement. LBM 04/29 documented with 285 mL stool output per I&O. Will continue to follow closely and monitor need for nutrition intervention. Recommendations: 1) Advance to low fiber/low residue diet as medically indicated post-op w/ functional colostomy output 2) monitor for ONS needs once PO 3) bowel care per rx; promotility agent per surgeon post-op 4) Scaled weights per rx Addendum: 04/30/20 at [address] Amended: Links added.
[2020-04-30] MEDS ORDERED: potassium CL 10mEq/100ml bag 100 ML IV PRN (16:35)
[2020-04-30] MEDS ORDERED: potassium Cl 20 mEq SR tablet PO PRN (16:35)
[2020-04-30] MEDS ORDERED: magnesium Cl slow-release 64mg tablet PO PRN (16:35)
[2020-04-30] MEDS ORDERED: magnesium 4gm in 100ml NS 100 ML IV PRN (16:35)
[2020-04-30] MEDS: CADD PCA waste documentation MC PRN (17:43)
[2020-04-30 18:00] VITALS: BP 161/92
--- NOTE | 2020-04-30 18:16 | NUR ---
Problems reprioritized. Patient report given, questions answered & plan of care reviewed with LETI Coy and Winniestudent nurse.
--- NOTE | 2020-04-30 19:04 | NUR ---
Patient in room [facility] 344. I have received report from LETI Leggett and had the opportunity to ask questions and assume patient care.
--- NOTE | 2020-04-30 19:07 | NUR ---
Patient in room [facility] 344. I have received report from LETI Leggett and had the opportunity to ask questions and assume patient care.
[2020-04-30] MEDS: enoxaparin 40mg/0.4ml syringe SUBCUT SCH (19:36)
[2020-04-30] MEDS: HYDROmorphone inj. 0.5 MG/0.5 ML DISP.SYRIN IV PRN (19:51)
[2020-04-30] MEDS: HYDROmorphone 1 mg/ml syringe IV PRN (23:09)
[2020-05-01] VITALS: BP 145/90
[2020-05-01] MEDS: metoclopramide 5 mg/ml inj IV SCH ×5 (02:44→20:05)
[2020-05-01] MEDS: potassium Cl 20 mEq SR tablet PO PRN (02:45)
[2020-05-01] MEDS: HYDROmorphone inj. 0.5 MG/0.5 ML DISP.SYRIN IV PRN ×2 (02:50→13:55)
[2020-05-01 05:18] LABS: ALANINE AMINOTRANSFERASE 34 U/L (12-78); ALBUMIN 2.1 G/DL (3.4-5.0); ALBUMIN/GLOBULIN RATIO 0.6 (1.1-1.5); ALKALINE PHOSPHATASE 61 IU/L (46-116); ANION GAP 4 (8-16); ASPARTATE AMINO TRANSFERASE 30 U/L (10-37); BILIRUBIN,TOTAL 0.7 MG/DL (0.1-1.0); BLOOD UREA NITROGEN 6 MG/DL (7-18); BUN/CREATININE RATIO 7.9 (5.4-32.0); CALCIUM 8.1 MG/DL (8.5-10.1); CHLORIDE 104 MMOL/L (99-107); CREATININE 0.76 MG/DL (0.60-1.10); GLUCOSE 90 MG/DL (70-104); POTASSIUM 3.9 MMOL/L (3.5-5.1); SODIUM 136 MMOL/L (135-145); TOTAL CARBON DIOXIDE 27.6 MMOL/L (24-32); TOTAL PROTEIN 5.9 G/DL (6.4-8.2); eGFR > 90 ML/MIN
[2020-05-01 06:01] LABS: BASOPHILS % (AUTO) 0.6 % (0-1); EOSINOPHILS # (AUTO) 0.3 X10'3 (0-0.9); EOSINOPHILS % (AUTO) 3.1 % (0-6); HEMATOCRIT 39.3 % (42.0-52.0); HEMOGLOBIN 13.3 g/dl (14.0-17.9); LYMPHOCYTES # (AUTO) 1.2 X10'3 (1.1-4.8); LYMPHOCYTES % (AUTO) 13.9 % (21-51); MEAN CORPUSCULAR HEMOGLOBIN 33.1 PG (27.0-31.0); MEAN CORPUSCULAR HGB CONC 33.9 g/dL (33.0-36.5); MEAN CORPUSCULAR VOLUME 97.7 FL (78-98); MEAN PLATELET VOLUME 9.2 FL (7.4-10.4); MONOCYTES # (AUTO) 0.6 X10'3 (0-0.9); MONOCYTES % (AUTO) 7.4 % (2-12); NEUTROPHILS # (AUTO) 6.5 X10'3 (1.8-7.7); PLATELET COUNT 379 X10'3 (140-440); RED BLOOD COUNT 4.02 X10'6 (4.70-6.10); RED CELL DISTRIBUTION WIDTH 13.5 % (11.5-14.5); WHITE BLOOD COUNT 8.6 X10'3 (4.5-11.0)
[2020-05-01] MEDS: HYDROmorphone 1 mg/ml syringe IV PRN ×2 (06:01→10:59)
--- NOTE | 2020-05-01 06:21 | NUR ---
I have looked over PAL Jacques student documentation, and assessments , I agree with her documentation. I also observed and added to her report . Report was given to LETI Lieberman
--- NOTE | 2020-05-01 06:37 | NUR ---
Problems reprioritized. Patient report given, questions answered & plan of care reviewed with LETI Lieberman.
--- NOTE | 2020-05-01 06:41 | NUR ---
Patient in room [facility] 344. I have received report from Zbigniew Sanchez and had the opportunity to ask questions and assume patient care.
[2020-05-01 07:00] VITALS: BP 145/93
[2020-05-01] MEDS: piperacillin/tazo 3.375gm/50ml 50 ML IV SCH ×2 (07:20→17:11)
[2020-05-01] MEDS: lactobacillus rhamnosus 10,000 MMU CELLS/CAPSULE PO SCH ×2 (07:20→20:04)
[2020-05-01] MEDS: metoprolol tartrate 25mg tablet PO SCH ×2 (07:21→20:05)
[2020-05-01 11:00] VITALS: BP 162/93
--- NOTE | 2020-05-01 11:03 | NUR ---
called Dr Allred to let him know about critical K for pt, phone full. Could not leave a message. Charge aware.
--- NOTE | 2020-05-01 11:25 | NUR ---
called Dr Allred X2, no answer. Pt Needs K protocol and Ativan. Charge aware and has a sticky with info required in case I am with a pt or break and cannot be reach.
[2020-05-01] MEDS: micafungin inj 100 MG in normal saline 100ml IV soln 100 ML IV SCH (11:32)
--- NOTE | 2020-05-01 12:04 | NUR ---
mYCAMINE DUE AT 8 AM, PAGED AND CALLED PHARMACY FOR IT. PHARMACY DROPPED IT OFF PASSED 11 AM.
[2020-05-01] MEDS: HYDROcodone/acetaminophen 10/325mg tab PO PRN ×2 (17:14→22:14)
[2020-05-01 18:00] VITALS: BP 165/97
--- NOTE | 2020-05-01 18:00 | NUR ---
Patient in room [facility] 344. I have received report from Luisana LANDEROS and had the opportunity to ask questions and assume patient care.
--- NOTE | 2020-05-01 18:22 | NUR ---
Patient in room [facility] 344. I have received report from KENDAL LANDEROS and had the opportunity to ask questions and assume patient care.
[2020-05-01] MEDS: enoxaparin 40mg/0.4ml syringe SUBCUT SCH (20:06)
--- NOTE | 2020-05-01 22:05 | NUR ---
page Dr. Rodriguez about IV coming out and pt doesn't want a new IV. pt is a hard stick and is planned to return to home tomorrow and doesn't want a new IV at this time. will continue to monitor.
[2020-05-02] VITALS: BP 151/91
[2020-05-02] MEDS: piperacillin/tazo 3.375gm/50ml 50 ML IV SCH (00:06)
[2020-05-02] MEDS: metoclopramide 5 mg/ml inj IV SCH ×3 (01:30→14:00)
[2020-05-02] MEDS: HYDROcodone/acetaminophen 10/325mg tab PO PRN ×2 (05:52→12:54)
[2020-05-02 06:05] LABS: BASOPHILS # (AUTO) 0.1 X10'3 (0-0.2); BASOPHILS % (AUTO) 1.2 % (0-1); EOSINOPHILS # (AUTO) 0.2 X10'3 (0-0.9); HEMATOCRIT 40.4 % (42.0-52.0); HEMOGLOBIN 13.4 g/dl (14.0-17.9); LYMPHOCYTES # (AUTO) 1.6 X10'3 (1.1-4.8); LYMPHOCYTES % (AUTO) 19.9 % (21-51); MEAN CORPUSCULAR HEMOGLOBIN 32.5 PG (27.0-31.0); MEAN CORPUSCULAR HGB CONC 33.2 g/dL (33.0-36.5); MEAN CORPUSCULAR VOLUME 97.7 FL (78-98); MEAN PLATELET VOLUME 9.5 FL (7.4-10.4); MONOCYTES # (AUTO) 0.7 X10'3 (0-0.9); MONOCYTES % (AUTO) 8.8 % (2-12); NEUTROPHILS # (AUTO) 5.5 X10'3 (1.8-7.7); NEUTROPHILS % (AUTO) 67.1 % (42-75); PLATELET COUNT 372 X10'3 (140-440); RED BLOOD COUNT 4.14 X10'6 (4.70-6.10); RED CELL DISTRIBUTION WIDTH 13.6 % (11.5-14.5); WHITE BLOOD COUNT 8.2 X10'3 (4.5-11.0)
[2020-05-02 06:18] LABS: ALANINE AMINOTRANSFERASE 43 U/L (12-78); ALBUMIN 2.2 G/DL (3.4-5.0); ALBUMIN/GLOBULIN RATIO 0.6 (1.1-1.5); ALKALINE PHOSPHATASE 57 IU/L (46-116); ANION GAP 7 (8-16); ASPARTATE AMINO TRANSFERASE 36 U/L (10-37); BILIRUBIN,TOTAL 0.5 MG/DL (0.1-1.0); BLOOD UREA NITROGEN 6 MG/DL (7-18); BUN/CREATININE RATIO 7.2 (5.4-32.0); CALCIUM 8.5 MG/DL (8.5-10.1); CHLORIDE 104 MMOL/L (99-107); CREATININE 0.83 MG/DL (0.60-1.10); GLUCOSE 91 MG/DL (70-104); POTASSIUM 4.2 MMOL/L (3.5-5.1); SODIUM 137 MMOL/L (135-145); TOTAL CARBON DIOXIDE 26.5 MMOL/L (24-32); TOTAL PROTEIN 6.2 G/DL (6.4-8.2); eGFR > 90 ML/MIN
--- NOTE | 2020-05-02 06:33 | NUR ---
Problems reprioritized. Patient report given, questions answered & plan of care reviewed with Luisana LANDEROS.
--- NOTE | 2020-05-02 06:35 | NUR ---
Patient in room [facility] 344. I have received report from Amara LANDEROS and had the opportunity to ask questions and assume patient care.
[2020-05-02 07:00] VITALS: BP 153/97
[2020-05-02] MEDS: lactobacillus rhamnosus 10,000 MMU CELLS/CAPSULE PO SCH (07:42)
[2020-05-02] MEDS: metoprolol tartrate 25mg tablet PO SCH (07:42)
[2020-05-02] MEDS: micafungin inj 100 MG in normal saline 100ml IV soln 100 ML IV SCH (07:44)
[2020-05-02] MEDS ORDERED: HYDR-4353 PO (10:22)
[2020-05-02] MEDS ORDERED: METO-395 PO (10:22)
[2020-05-02 12:00] VITALS: BP 153/97
--- NOTE | 2020-05-02 14:43 | NUR ---
PT Dc to home with to [place]. Pt is A & O x4, verbalizes understanding of all Dc orders. Pt educated on colostomy care, wound care and is able to teach back on all DC instructions. Pt given supplies to care for his wound and also given a printed guide of limitations as well as a job excused for 1 month. Pt understands the importance of following up with Dr Ayala within two weeks. Office number was provided. Pt is able to dress himself and care for his ADL's without any assistance. Pt was wheeled to the front where his picked him up to go home to [place]. Addendum: 05/02/20 at 1449 by Luisana Gil RN IV cath was removed and it was intact.
== END 2020-05-02 14:55 | disposition home or self-care (01) | DRG 853 ==
LOC: ER 03:18 → ED HOLD 04:24 → ORTHO 4S 06:59 → ICU 2S 04-24 01:27 → SUR 3N 04-24 18:03
PROVIDERS: ADMIT Internal Medicine; ATTEND Internal Medicine
PROC: 0DSN4ZZ Reposition Sigmoid Colon, Percutaneous Endoscopic Approach (ICD-10-PCS; principal; 2020-04-24)
PROC: 0DN84ZZ Release Small Intestine, Percutaneous Endoscopic Approach (ICD-10-PCS; 2020-04-24)
DX: A41.9 Sepsis, unspecified organism (principal); K65.1 Peritoneal abscess; K57.20 Diverticulitis of large intestine with perforation and abscess without bleeding; K56.7 Ileus, unspecified; K91.89 Other postprocedural complications and disorders of digestive system; F12.90 Cannabis use, unspecified, uncomplicated; K66.0 Peritoneal adhesions (postprocedural) (postinfection); Z79.899 Other long term (current) drug therapy; Y83.8 Other surgical procedures as the cause of abnormal reaction of the patient, or of later complication, without mention of misadventure at the time of the procedure
CPT/HCPCS: 99285; Z7506; Z7508; 36415; 74176; 74177; 80048; 80053; 82948; 83605; 84145; 85007; 85025; 85610; 85730; 86885; 86900; 86901; 87040; 87070; 87075; 87077; 87081; A4215; A4421; A4618; A6253; A6407; A6449; A7000; C1758; C9290; C9399; G0378; J0131; J1100; J1170; J1450; J1650; J2001; J2175; J2248; J2250; J2270; J2405; J2543; J2704; J2765; J3010; J3490; J7030; J7120; P9045; Q0161; Q9967

== ENCOUNTER 2020-07-14 14:28 | Outpatient (CLI) | payer OTHER ==
[~2020-07-14] VITALS: Ht 188 cm; Wt 113.4 kg
[~2020-07-14 14:28] MED LIST: HYDR-4353 PO; METO-395 PO
[2020-07-14] MEDS ORDERED: NO HOME MEDS (15:51)
[2020-07-14 16:01] LABS: BASOPHILS % (AUTO) 0.9 % (0-1); EOSINOPHILS % (AUTO) 0.3 % (0-6); LYMPHOCYTES # (AUTO) 1.4 X10'3 (1.1-4.8); LYMPHOCYTES % (AUTO) 26.9 % (21-51); MEAN CORPUSCULAR HEMOGLOBIN 31.1 PG (27.0-31.0); MEAN CORPUSCULAR HGB CONC 34.4 g/dL (33.0-36.5); MEAN CORPUSCULAR VOLUME 90.4 FL (78-98); MEAN PLATELET VOLUME 9.4 FL (7.4-10.4); MONOCYTES # (AUTO) 0.6 X10'3 (0-0.9); MONOCYTES % (AUTO) 11.4 % (2-12); NEUTROPHILS # (AUTO) 3.1 X10'3 (1.8-7.7); NEUTROPHILS % (AUTO) 60.5 % (42-75); PRE OP HEMATOCRIT 47.6 % (42.0-52.0); PRE OP HEMOGLOBIN 16.4 g/dL (14.0-17.9); PRE OP PLATELET COUNT 119 X10'3 (140-440); RED BLOOD COUNT 5.26 X10'6 (4.70-6.10); RED CELL DISTRIBUTION WIDTH 13.5 % (11.5-14.5)
[2020-07-14 16:11] LABS: PRE OP PROTIME 10.8 SECONDS (9.0-12.0)
[2020-07-14 16:21] LABS: ALBUMIN 4.1 G/DL (3.4-5.0); ALKALINE PHOSPHATASE 98 IU/L (46-116); BLOOD UREA NITROGEN 10 MG/DL (7-18); CHLORIDE 101 MMOL/L (99-107); CREATININE 0.91 MG/DL (0.60-1.10); PRE OP ALT 60 U/L (30-65); PRE OP ANION GAP 9 (8-16); PRE OP AST 26 U/L (10-37); PRE OP BILIRUB, TOTAL 0.8 MG/DL (0.0-1.0); PRE OP GLUCOSE 91 MG/DL (70-104); PRE OP POTASSIUM 3.9 MMOL/L (3.4-5.1); PRE OP SODIUM 138 MMOL/L (135-145); TOTAL PROTEIN 8.2 G/DL (6.4-8.2); eGFR > 90 ML/MIN
[2020-07-29 16:32] LABS: BASOPHILS # (AUTO) 0.1 X10'3 (0-0.2); BASOPHILS % (AUTO) 0.8 % (0-1); EOSINOPHILS % (AUTO) 0.4 % (0-6); LYMPHOCYTES # (AUTO) 1.8 X10'3 (1.1-4.8); LYMPHOCYTES % (AUTO) 20.7 % (21-51); MEAN CORPUSCULAR HEMOGLOBIN 30.7 PG (27.0-31.0); MEAN CORPUSCULAR VOLUME 90.1 FL (78-98); MEAN PLATELET VOLUME 9.2 FL (7.4-10.4); MONOCYTES # (AUTO) 0.5 X10'3 (0-0.9); MONOCYTES % (AUTO) 5.9 % (2-12); NEUTROPHILS # (AUTO) 6.4 X10'3 (1.8-7.7); NEUTROPHILS % (AUTO) 72.2 % (42-75); PRE OP HEMATOCRIT 46.2 % (42.0-52.0); PRE OP HEMOGLOBIN 15.7 g/dL (14.0-17.9); PRE OP PLATELET COUNT 233 X10'3 (140-440); RED BLOOD COUNT 5.13 X10'6 (4.70-6.10); RED CELL DISTRIBUTION WIDTH 14.4 % (11.5-14.5)
[2020-07-29 16:34] LABS: PRE OP INR 1.1 INR; PRE OP PROTIME 11.3 SECONDS (9.0-12.0)
[2020-07-29 16:35] LABS: ALBUMIN 3.9 G/DL (3.4-5.0); ALKALINE PHOSPHATASE 89 IU/L (46-116); BLOOD UREA NITROGEN 11 MG/DL (7-18); BUN/CREATININE RATIO 12.4 (5.4-32.0); CALCIUM 8.8 MG/DL (8.5-10.1); CHLORIDE 103 MMOL/L (99-107); CREATININE 0.89 MG/DL (0.60-1.10); PRE OP ANION GAP 9 (8-16); PRE OP AST 57 U/L (10-37); PRE OP BILIRUB, TOTAL 0.5 MG/DL (0.0-1.0); PRE OP GLUCOSE 106 MG/DL (70-104); PRE OP POTASSIUM 3.8 MMOL/L (3.4-5.1); PRE OP SODIUM 140 MMOL/L (135-145); TOTAL CARBON DIOXIDE 28.4 MMOL/L (24-32); TOTAL PROTEIN 7.7 G/DL (6.4-8.2); eGFR > 90 ML/MIN
[2020-07-29 16:38] LABS: PRE OP ALT 107 U/L (30-65)
[2020-08-16] MEDS ORDERED: ringers solution, lacted 1,000 ML IV SCH (05:00)
[2020-08-16] MEDS ORDERED: famotidine 20mg tablet PO ONE (05:30)
[2020-08-16] MEDS ORDERED: ceFOXitin 2GM-NS 100mL ADDvant 100 ML IV ONE (05:30)
== END 2020-07-14 23:59 | disposition home or self-care (01) ==
LOC: PRE-OP 14:28 → EDSTATUS 07-22 08:00
PROVIDERS: ATTEND Surgery
DX: Z01.812 Encounter for preprocedural laboratory examination (principal); Z20.828 Contact with and (suspected) exposure to other viral communicable diseases
CPT/HCPCS: 36415; 80053; 85025; 85610; 85730; 86885; 86900; 86901; 87081; 87635; 93005

== ENCOUNTER 2020-08-16 13:00 | Inpatient (IN) | payer OTHER ==
[~2020-08-16] VITALS: Ht 188 cm; Wt 129.0 kg
[2020-08-16] VITALS (10 sets, daily range): BP systolic 147–174; BP diastolic 89–113
[~2020-08-16 13:00] MED LIST changes: -HYDR-4353 PO; -METO-395 PO; +NO HOME MEDS
[2020-08-16] MEDS ORDERED: famotidine 20mg tablet PO ONE (14:07)
[2020-08-16] MEDS ORDERED: ringers solution, lacted 1,000 ML IV SCH ×2 (14:08→14:20)
[2020-08-16] MEDS ORDERED: ceFOXitin 2GM-NS 100mL ADDvant 100 ML IV ONE (14:10)
[2020-08-16] MEDS ORDERED: morphine 4 MG/ML inj SYRINge IV PRN (14:20)
[2020-08-16] MEDS ORDERED: ondansetron/PF 4mg/2ml inj IV PRN ×2 (14:20→21:40)
[2020-08-16] MEDS ORDERED: meperidine/PF 25mg/ml syringe IV PRN ×2 (14:20)
[2020-08-16] MEDS ORDERED: proCHLORperazine 10 MG/2 ml inj IV PRN (14:20)
[2020-08-16] MEDS ORDERED: BUPIVAcaine/PF 2.5 mg/ml (0.25%) 30ml vial ONE ×2 (15:00→21:17)
[2020-08-16] MEDS ORDERED: midazolam 2 mg/2 ml injection ONE (15:08)
[2020-08-16] MEDS ORDERED: fentaNYL /PF 50mcg/ml 5ml ampule ONE ×2 (15:08→17:38)
[2020-08-16] MEDS ORDERED: propofol inj 20 ML IV ONE (15:10)
[2020-08-16] MEDS ORDERED: LIDOcaine 2% (20mg/ml) 5ml vial ONE (15:10)
[2020-08-16] MEDS ORDERED: dexamethasone sod phosphate 10mg/ml inj ONE (15:22)
[2020-08-16] MEDS ORDERED: neostigmine methylsulfate 1 MG/ML 10ml vial ONE (15:22)
[2020-08-16] MEDS ORDERED: pancuronium br 1mg/ml inj IV ONE (15:22)
[2020-08-16] MEDS ORDERED: glycopyrrolate 0.2mg/ml inj ONE (15:22)
[2020-08-16] MEDS ORDERED: sevoflurane 250ml liquid IH ONE (15:22)
[2020-08-16] MEDS ORDERED: labetalol 20mg/4ml (5mg/ml) syringe IV ONE (15:22)
[2020-08-16] MEDS ORDERED: rocuronium 10mg/ml inj IV ONE ×2 (15:40→17:30)
[2020-08-16] MEDS ORDERED: ondansetron/PF 4mg/2ml inj ONE (15:40)
[2020-08-16] MEDS ORDERED: morphine 10mg/ml inj. ONE (20:14)
[2020-08-16] MEDS ORDERED: BUPIVACAINE liposomal/PF 13.3 MG/ML vial IM ONE (21:17)
[2020-08-16] MEDS ORDERED: acetaminophen 1,000mg/100ml IV 100 ML IV ONE (21:45)
--- NOTE | 2020-08-16 21:55 | NUR ---
Received from OR via BED , accompanied by Anesthesiologist DR ENRIQUEZ and report given by Anesthesiolgist, PATIENT WAKING UP, DENIES C/O 8/10 PAIN, CSM INTACT, ABDOMEN DRESSING CDI WITH CHRISTOS DRAIN WITH MINIMAL OUTPUT AT THIS TIME, SCD ON, 18G PIV TO RUE, SCD ON, F/C DRAINING CLEAR YELLOW URINE.
[2020-08-16] MEDS: meperidine/PF 25mg/ml syringe IV PRN ×2 (22:04→22:16)
[2020-08-16] MEDS: morphine 2 MG/ML inj. syringe IV PRN ×2 (22:16→22:28)
[2020-08-16] MEDS ORDERED: hydrALAZINE 20mg/ml inj. IV PRN (22:30)
[2020-08-16] MEDS ORDERED: labetalol 20mg/4ml (5mg/ml) syringe IV PRN (22:30)
--- NOTE | 2020-08-16 22:45 | NUR ---
PATIENT TAKEN TO WITH ALL BELONGINGS AND HOOKED UP TO MONITORS IN ROOM AND REPORT GIVEN TO RN WHO HAS TAKEN OVER PATIENT CARE.
[2020-08-16] MEDS: HYDROmorphone 1 mg/ml syringe IV PRN (23:47)
[2020-08-16] MEDS: potassium CL 20mEq in D5-1/2NS 1,000 ML IV SCH (23:47)
[2020-08-16] MEDS: ceFOXitin inj 1,000 MG in normal saline 100ml IV soln 100 ML IV SCH (23:47)
[2020-08-16] MEDS: gabapentin 400mg capsule PO SCH (23:48)
[2020-08-17] VITALS (8 sets, daily range): BP systolic 137–174; BP diastolic 87–98
[2020-08-17] MEDS: ketorolac trometh. 30mg/ml inj. IV SCH ×4 (01:58→19:37)
--- NOTE | 2020-08-17 06:04 | NUR ---
Problems reprioritized. Patient report given, questions answered & plan of care reviewed with LETI Hunter.
--- NOTE | 2020-08-17 06:05 | NUR ---
Patient in room [facility] 346. I have received report from Farhana LANDEROS and had the opportunity to ask questions and assume patient care.
[2020-08-17 06:12] LABS: ALBUMIN 3.3 G/DL (3.4-5.0); ANION GAP 8 (8-16); BLOOD UREA NITROGEN 10 MG/DL (7-18); BUN/CREATININE RATIO 9.6 (5.4-32.0); CALCIUM 8.2 MG/DL (8.5-10.1); CHLORIDE 103 MMOL/L (99-107); CREATININE 1.04 MG/DL (0.60-1.10); GLUCOSE 144 MG/DL (70-104); POTASSIUM 4.9 MMOL/L (3.5-5.1); SODIUM 138 MMOL/L (135-145); TOTAL CARBON DIOXIDE 26.7 MMOL/L (24-32); eGFR 80 ML/MIN
[2020-08-17 06:18] LABS: BASOPHILS % (AUTO) 0.2 % (0-1); EOSINOPHILS % (AUTO) 0 % (0-6); HEMATOCRIT 45.5 % (42.0-52.0); HEMOGLOBIN 15.5 g/dl (14.0-17.9); LYMPHOCYTES # (AUTO) 0.6 X10'3 (1.1-4.8); LYMPHOCYTES % (AUTO) 5.7 % (21-51); MEAN CORPUSCULAR HEMOGLOBIN 31.4 PG (27.0-31.0); MEAN CORPUSCULAR VOLUME 92.3 FL (78-98); MEAN PLATELET VOLUME 9.1 FL (7.4-10.4); MONOCYTES # (AUTO) 0.8 X10'3 (0-0.9); MONOCYTES % (AUTO) 7.3 % (2-12); NEUTROPHILS # (AUTO) 9.2 X10'3 (1.8-7.7); NEUTROPHILS % (AUTO) 86.8 % (42-75); PLATELET COUNT 170 X10'3 (140-440); RED BLOOD COUNT 4.93 X10'6 (4.70-6.10); RED CELL DISTRIBUTION WIDTH 15.2 % (11.5-14.5); WHITE BLOOD COUNT 10.6 X10'3 (4.5-11.0)
[2020-08-17] MEDS: gabapentin 400mg capsule PO SCH ×3 (07:20→23:34)
[2020-08-17] MEDS: potassium CL 20mEq in D5-1/2NS 1,000 ML IV SCH ×3 (07:20→21:50)
[2020-08-17] MEDS: ceFOXitin inj 1,000 MG in normal saline 100ml IV soln 100 ML IV SCH (07:20)
[2020-08-17] MEDS: HYDROmorphone 1 mg/ml syringe IV PRN ×3 (07:21→19:37)
--- NOTE | 2020-08-17 07:37 | NUR ---
Postop teaching done to patient. Discussed deep breathing exercise, patient was given incentive spirometer. Encouraged patient to ambulate in the hallway today. SCD turned on. Addendum: 08/17/20 at 0738 by Dale Stephens RN Patient verbalized understanding of all instructions made
--- NOTE | 2020-08-17 10:03 | NUR ---
Ng catheter discontinued as per patient request, SCIP order also said POD # 1 (today's date). Encouraged patient to void, urinal given Addendum: 08/17/20 at 1004 by Dale Stephens RN Patient ambulated in the hallway with standby assist x 3 laps
--- NOTE | 2020-08-17 16:40 | NUR ---
Bladder scan was 54ml, patient stated "I think I will go pee, I just need more time!" Encouraged patient to continue ambulating, drinking water, and try to void into the urinal as soon as he feel the urge to pee. Addendum: 08/17/20 at 1754 by Dale Stephens RN Dr. Ayala seen this patient, he was aware about the patient unable to pee yet, received order for straight cath PRN for residual 500ml or greater
--- NOTE | 2020-08-17 18:11 | NUR ---
Problems reprioritized. Patient report given, questions answered & plan of care reviewed with Raquel LANDEROS.
--- NOTE | 2020-08-17 19:30 | NUR ---
Patient voided without difficulty in urinal 450ml, ben in color. No issues at this time. Will continue with current care.
[2020-08-17] MEDS: magnesium hydroxide 30ml (MOM) UD suspension PO SCH (19:36)
--- NOTE | 2020-08-17 22:00 | NUR ---
Packing to midline incision and right old ostomy site removed tonight per orders. New island dressing applied tonight. Both sites had mild drainage of serosanguanous fluids when iodoform packing was removed. Patient tolerated well.
[2020-08-17] MEDS: HYDROcodone/acetaminophen 10/325mg tab PO PRN (23:35)
[2020-08-18] VITALS: BP 136/82
[2020-08-18] MEDS: ketorolac trometh. 30mg/ml inj. IV SCH ×4 (02:15→19:25)
[2020-08-18] MEDS: HYDROcodone/acetaminophen 10/325mg tab PO PRN ×2 (03:36→08:36)
[2020-08-18] MEDS: potassium CL 20mEq in D5-1/2NS 1,000 ML IV SCH (05:26)
--- NOTE | 2020-08-18 06:00 | NUR ---
Patient in room [facility] 346. I have received report from LETI García and had the opportunity to ask questions and assume patient care.
--- NOTE | 2020-08-18 06:31 | NUR ---
Problems reprioritized. Patient report given, questions answered & plan of care reviewed with Lester LANDEROS.
[2020-08-18 07:04] LABS: BASOPHILS % (AUTO) 0.2 % (0-1); EOSINOPHILS % (AUTO) 0.3 % (0-6); HEMATOCRIT 40.3 % (42.0-52.0); HEMOGLOBIN 13.5 g/dl (14.0-17.9); LYMPHOCYTES # (AUTO) 1.5 X10'3 (1.1-4.8); LYMPHOCYTES % (AUTO) 15.2 % (21-51); MEAN CORPUSCULAR HEMOGLOBIN 31.4 PG (27.0-31.0); MEAN CORPUSCULAR HGB CONC 33.5 g/dL (33.0-36.5); MEAN CORPUSCULAR VOLUME 93.6 FL (78-98); MEAN PLATELET VOLUME 9.4 FL (7.4-10.4); MONOCYTES # (AUTO) 0.9 X10'3 (0-0.9); NEUTROPHILS # (AUTO) 7.3 X10'3 (1.8-7.7); NEUTROPHILS % (AUTO) 75.3 % (42-75); PLATELET COUNT 141 X10'3 (140-440); RED BLOOD COUNT 4.31 X10'6 (4.70-6.10); RED CELL DISTRIBUTION WIDTH 15.1 % (11.5-14.5); WHITE BLOOD COUNT 9.8 X10'3 (4.5-11.0)
[2020-08-18] MEDS: gabapentin 400mg capsule PO SCH ×2 (07:15→15:43)
[2020-08-18] MEDS: magnesium hydroxide 30ml (MOM) UD suspension PO SCH ×2 (07:16→19:25)
[2020-08-18 07:22] LABS: ANION GAP 5 (8-16); BLOOD UREA NITROGEN 6 MG/DL (7-18); BUN/CREATININE RATIO 6.6 (5.4-32.0); CHLORIDE 104 MMOL/L (99-107); CREATININE 0.91 MG/DL (0.60-1.10); GLUCOSE 121 MG/DL (70-104); POTASSIUM 3.9 MMOL/L (3.5-5.1); SODIUM 138 MMOL/L (135-145); TOTAL CARBON DIOXIDE 28.9 MMOL/L (24-32); eGFR > 90 ML/MIN
[2020-08-18 08:00] VITALS: BP 130/79
[2020-08-18 11:00] VITALS: BP 139/82
[2020-08-18] MEDS: HYDROmorphone 1 mg/ml syringe IV PRN ×2 (12:54→19:43)
--- NOTE | 2020-08-18 18:24 | NUR ---
Problems reprioritized. Patient report given, questions answered & plan of care reviewed with LETI García.
[2020-08-18 20:00] VITALS: BP 141/90
[2020-08-19] VITALS: BP 149/89
[2020-08-19] MEDS: gabapentin 400mg capsule PO SCH ×2 (00:08→08:31)
[2020-08-19] MEDS: ketorolac trometh. 30mg/ml inj. IV SCH ×3 (02:40→14:00)
[2020-08-19] MEDS: HYDROmorphone 1 mg/ml syringe IV PRN ×2 (04:18→12:17)
--- NOTE | 2020-08-19 06:30 | NUR ---
Patient in room [facility] 340. I have received report from Raquel LANDEROS and had the opportunity to ask questions and assume patient care.
--- NOTE | 2020-08-19 07:00 | NUR ---
Problems reprioritized. Patient report given, questions answered & plan of care reviewed with García RN.
[2020-08-19 07:28] VITALS: BP 128/70
[2020-08-19 07:50] LABS: BASOPHILS # (AUTO) 0.1 X10'3 (0-0.2); BASOPHILS % (AUTO) 0.6 % (0-1); EOSINOPHILS # (AUTO) 0.1 X10'3 (0-0.9); EOSINOPHILS % (AUTO) 1.2 % (0-6); HEMOGLOBIN 12.7 g/dl (14.0-17.9); LYMPHOCYTES # (AUTO) 1.6 X10'3 (1.1-4.8); LYMPHOCYTES % (AUTO) 17.2 % (21-51); MEAN CORPUSCULAR HEMOGLOBIN 32.4 PG (27.0-31.0); MEAN CORPUSCULAR HGB CONC 34.3 g/dL (33.0-36.5); MEAN CORPUSCULAR VOLUME 94.5 FL (78-98); MEAN PLATELET VOLUME 9.1 FL (7.4-10.4); MONOCYTES # (AUTO) 0.8 X10'3 (0-0.9); MONOCYTES % (AUTO) 8.7 % (2-12); NEUTROPHILS # (AUTO) 6.9 X10'3 (1.8-7.7); NEUTROPHILS % (AUTO) 72.3 % (42-75); PLATELET COUNT 131 X10'3 (140-440); RED BLOOD COUNT 3.92 X10'6 (4.70-6.10); WHITE BLOOD COUNT 9.6 X10'3 (4.5-11.0)
[2020-08-19] MEDS: magnesium hydroxide 30ml (MOM) UD suspension PO SCH (08:00)
[2020-08-19 08:12] LABS: ALBUMIN 2.7 G/DL (3.4-5.0); ANION GAP 8 (8-16); BLOOD UREA NITROGEN 8 MG/DL (7-18); BUN/CREATININE RATIO 10.4 (5.4-32.0); CALCIUM 8.1 MG/DL (8.5-10.1); CHLORIDE 103 MMOL/L (99-107); CREATININE 0.77 MG/DL (0.60-1.10); GLUCOSE 98 MG/DL (70-104); POTASSIUM 3.7 MMOL/L (3.5-5.1); SODIUM 137 MMOL/L (135-145); TOTAL CARBON DIOXIDE 26.2 MMOL/L (24-32); eGFR > 90 ML/MIN
[2020-08-19] MEDS ORDERED: SULF1TAB49 PO (13:37)
[2020-08-19] MEDS ORDERED: HYDR-4353 PO (13:37)
--- NOTE | 2020-08-19 14:00 | NUR ---
Patient educated on discharge medications with patient was done verbally, patient was also educated on the discharge woundcare teaching and given material to dress as needed. Patient left with all of his belong at discharge patient left after discharge finished with resource nurse.
== END 2020-08-19 14:20 | disposition home or self-care (01) | DRG 337 ==
LOC: UNDOADMIN 13:21 → PAS IN 13:21 → SUR 3N 22:41 → PAS IN 22:41
PROVIDERS: ADMIT Surgery; ATTEND Surgery
PROC: 0WQF0ZZ Repair Abdominal Wall, Open Approach (ICD-10-PCS; 2020-08-16)
PROC: 8E0W0CZ Robotic Assisted Procedure of Trunk Region, Open Approach (ICD-10-PCS; 2020-08-16)
PROC: 0DNW0ZZ Release Peritoneum, Open Approach (ICD-10-PCS; principal; 2020-08-16 15:22)
DX: K43.5 Parastomal hernia without obstruction or gangrene (principal); K66.0 Peritoneal adhesions (postprocedural) (postinfection); Z93.3 Colostomy status; K82.8 Other specified diseases of gallbladder
CPT/HCPCS: Z7506; Z7508; 36415; 74176; 80048; 82948; 85025; 86885; 86900; 86901; A4215; A4618; A6266; A6402; C1758; C9290; G0378; J0131; J0694; J1100; J1170; J1885; J2001; J2175; J2250; J2270; J2405; J2704; J2710; J3010; J3480; J3490; J7120

== ENCOUNTER 2021-04-14 10:25 | Inpatient (IN) | payer OTHER ==
[~2021-04-14] VITALS: Ht 188 cm; Wt 139.0 kg
[2021-04-14] VITALS (18 sets, daily range): BP systolic 129–166; BP diastolic 73–100
[~2021-04-14 10:25] MED LIST changes: +ceFOXitin 2GM-NS 100mL ADDvant 100 ML IV ONE; +famotidine 20mg tablet PO ONE; +ringers solution, lacted 1,000 ML IV SCH
[2021-04-14] MEDS ORDERED: ondansetron/PF 4mg/2ml inj IV PRN ×2 (11:15→17:05)
[2021-04-14] MEDS ORDERED: ringers solution, lacted 1,000 ML IV SCH (11:15)
[2021-04-14] MEDS ORDERED: meperidine/PF 25mg/ml syringe IV PRN ×3 (11:15)
[2021-04-14] MEDS ORDERED: morphine 2 MG/ML inj. syringe IV PRN (11:15)
[2021-04-14] MEDS ORDERED: morphine 4 MG/ML inj SYRINge IV PRN (11:15)
[2021-04-14] MEDS ORDERED: proCHLORperazine 10 MG/2 ml inj IV PRN (11:15)
[2021-04-14 12:30] LABS: PRE OP PARTIAL THROMB. TIME 28 SECONDS (22-32)
[2021-04-14] MEDS ORDERED: BUPIVAcaine 0.5% inj/PF 30 ML ONE (13:37)
[2021-04-14] MEDS ORDERED: rocuronium 10mg/ml inj IV ONE ×3 (14:14→14:56)
[2021-04-14] MEDS ORDERED: sevoflurane 250ml liquid IH ONE (14:14)
[2021-04-14] MEDS ORDERED: dexamethasone sod phosphate 10mg/ml inj ONE (14:14)
[2021-04-14] MEDS ORDERED: glycopyrrolate 0.2mg/ml inj ONE (14:14)
[2021-04-14] MEDS ORDERED: neostigmine methylsulfate 1 MG/ML 10ml vial ONE (14:14)
[2021-04-14] MEDS ORDERED: midazolam 1 mg/ML 2ml injection ONE (14:25)
[2021-04-14] MEDS ORDERED: fentaNYL /PF 50mcg/ml 5ml ampule ONE (14:26)
[2021-04-14] MEDS ORDERED: propofol inj 20 ML IV ONE (14:42)
[2021-04-14] MEDS ORDERED: LIDOcaine 2% (20mg/ml) 5ml vial ONE (14:42)
[2021-04-14] MEDS ORDERED: ondansetron/PF 4mg/2ml inj ONE (14:44)
[2021-04-14] MEDS ORDERED: morphine 10mg/ml inj. ONE (16:16)
[2021-04-14] MEDS ORDERED: metoprolol tartrate 1mg/ml inj IV ONE (16:18)
[2021-04-14] MEDS ORDERED: ceFAZolin 1000mg inj ONE (16:39)
[2021-04-14] MEDS ORDERED: acetaminophen 1,000mg/100ml IV 100 ML IV ONE (16:44)
--- NOTE | 2021-04-14 17:05 | NUR ---
Received from OR via ORTHO BED WITH [facility] , accompanied by Anesthesiologist ALLEN and report given by Anesthesiolgist. 7 ABDOMINAL BANDAIDS PRESENT. LOGROLLED FOR DONNING OF ABDOMINAL BINDER. REINFORCED BANDAIDS WITH 4X4S AND DONNED BINDER WITH 2 PERSON ASSIST. 20G PIV IN RIGHT UE RUNNING LR AT 100. MEDICATED FOR PAIN UPON ARRIVAL VSS AT THIS TIME. SCDS DONNED. Addendum: 04/14/21 at 1722 by Deyvi Boss RN, RN Amended: Links added.
--- NOTE | 2021-04-14 18:00 | NUR ---
Patient in room . I have received report from LETI Carnes in Recovery and had the opportunity to ask questions and assume patient care.
--- NOTE | 2021-04-14 18:25 | NUR ---
PATIENT HAS MET ALL CRITERIA FOR TRANSFER TO THE SURGICAL/LLOYD/PCU/ORTHO/ICU FLOOR. VSS. DRESSINGS INTACT. BED LOW, CALL LIGHT PRESENT AND 2 RAILS UP. RN PRESENT TO ACCEPT CARE OF PATIENT AND REPORT HAS BEEN CALLED. ALL QUESTIONS ANSWERED TO ACCEPTING RN. LETI LARIOS PRESENT AT BEDSIDE TO ASSESS AND ASSIST IN SET UP OF PATIENT. 2 BAGS OF BELONGINGS WITH PATIENT AND PLACED AT BEDSIDE IN 8483S. URINE STILL CLEAR YELLOW, ABDOMINAL BINDER WITHOUT DRAINAGE PRESENT. PATIENT REQUESTING DILAUDID FOR PAIN UPON ARRIVAL TO FLOOR. Addendum: 04/14/21 at 1840 by Deyvi Boss RN, RN Amended: Links added.
--- NOTE | 2021-04-14 18:29 | NUR ---
Problems reprioritized. Patient report given LETI Medrano questions answered & plan of care reviewed with .
[2021-04-14] MEDS: HYDROmorphone 1 mg/ml syringe IV PRN (20:54)
[2021-04-14] MEDS: potassium CL 20mEq in D5-1/2NS 1,000 ML IV SCH (21:48)
[2021-04-14] MEDS: ceFOXitin inj 1,000 MG in normal saline 100ml IV soln 100 ML IV SCH (23:59)
[2021-04-15] MEDS: potassium CL 20mEq in D5-1/2NS 1,000 ML IV SCH ×4 (01:05→23:09)
--- NOTE | 2021-04-15 02:00 | NUR ---
Pt. walked with nursing 300f at 2100.He tolerated well.
[2021-04-15 02:12] VITALS: BP 150/79
[2021-04-15] MEDS: HYDROmorphone 1 mg/ml syringe IV PRN ×4 (04:52→19:15)
[2021-04-15 06:00] VITALS: BP 144/91
--- NOTE | 2021-04-15 06:08 | NUR ---
Pt. walked with nursing 600F this morning.
[2021-04-15 06:12] VITALS: BP 144/91
--- NOTE | 2021-04-15 06:15 | NUR ---
Problems reprioritized. Patient report given, questions answered & plan of care reviewed with LETI Sanchez.
[2021-04-15 06:54] LABS: BASOPHILS % (AUTO) 0.2 % (0-1); EOSINOPHILS % (AUTO) 0 % (0-6); HEMATOCRIT 47.8 % (42.0-52.0); HEMOGLOBIN 16.2 g/dl (14.0-17.9); LYMPHOCYTES # (AUTO) 0.7 X10'3 (1.1-4.8); LYMPHOCYTES % (AUTO) 5.6 % (21-51); MEAN CORPUSCULAR HEMOGLOBIN 33.4 PG (27.0-31.0); MEAN CORPUSCULAR HGB CONC 33.8 g/dL (33.0-36.5); MEAN CORPUSCULAR VOLUME 98.7 FL (78-98); MEAN PLATELET VOLUME 10.1 FL (7.4-10.4); MONOCYTES # (AUTO) 0.8 X10'3 (0-0.9); MONOCYTES % (AUTO) 6.8 % (2-12); NEUTROPHILS # (AUTO) 10.3 X10'3 (1.8-7.7); NEUTROPHILS % (AUTO) 87.4 % (42-75); PLATELET COUNT 172 X10'3 (140-440); RED BLOOD COUNT 4.84 X10'6 (4.70-6.10); WHITE BLOOD COUNT 11.8 X10'3 (4.5-11.0)
[2021-04-15] MEDS: ceFOXitin inj 1,000 MG in normal saline 100ml IV soln 100 ML IV SCH (07:28)
[2021-04-15] MEDS: HYDROcodone/acetaminophen 10/325mg tab PO PRN ×3 (07:28→23:09)
[2021-04-15] MEDS: gabapentin 400mg capsule PO SCH ×3 (09:43→16:23)
[2021-04-15 10:00] VITALS: BP 135/84
[2021-04-15] MEDS ORDERED: metoclopramide 5 mg/ml inj IV PRN (13:35)
[2021-04-15 18:00] VITALS: BP 150/95
--- NOTE | 2021-04-15 18:51 | NUR ---
Patient in room ORTHO 4015. I have received report from LETI Sanchez and had the opportunity to ask questions and assume patient care.
[2021-04-15] MEDS: metoclopramide 5 mg/ml inj IV SCH (19:15)
[2021-04-15 22:00] VITALS: BP 147/89
[2021-04-16] MEDS: gabapentin 400mg capsule PO SCH ×2 (00:07→08:39)
[2021-04-16] MEDS: metoclopramide 5 mg/ml inj IV SCH ×2 (04:14→08:39)
[2021-04-16] MEDS: HYDROmorphone 1 mg/ml syringe IV PRN (04:14)
[2021-04-16 06:00] VITALS: BP 140/84
[2021-04-16 06:07] LABS: BASOPHILS % (AUTO) 0.6 % (0-1); EOSINOPHILS % (AUTO) 0.2 % (0-6); HEMOGLOBIN 14.7 g/dl (14.0-17.9); LYMPHOCYTES # (AUTO) 1.4 X10'3 (1.1-4.8); LYMPHOCYTES % (AUTO) 17.1 % (21-51); MEAN CORPUSCULAR HEMOGLOBIN 33.9 PG (27.0-31.0); MEAN CORPUSCULAR HGB CONC 33.5 g/dL (33.0-36.5); MEAN CORPUSCULAR VOLUME 101.3 FL (78-98); MEAN PLATELET VOLUME 9.8 FL (7.4-10.4); MONOCYTES # (AUTO) 0.7 X10'3 (0-0.9); MONOCYTES % (AUTO) 8.4 % (2-12); NEUTROPHILS % (AUTO) 73.7 % (42-75); PLATELET COUNT 140 X10'3 (140-440); RED BLOOD COUNT 4.34 X10'6 (4.70-6.10); WHITE BLOOD COUNT 8.2 X10'3 (4.5-11.0)
--- NOTE | 2021-04-16 06:25 | NUR ---
Problems reprioritized. Patient report given, questions answered & plan of care reviewed with LETI Sanchez.
[2021-04-16] MEDS: HYDROcodone/acetaminophen 10/325mg tab PO PRN ×2 (08:39→12:47)
[2021-04-16 10:00] VITALS: BP 126/78
== END 2021-04-16 13:50 | disposition home or self-care (01) | DRG 354 ==
LOC: PAS 10:25 → ORTHO 4S 19:22
PROVIDERS: ADMIT Surgery; ATTEND Surgery
PROC: 8E0W4CZ Robotic Assisted Procedure of Trunk Region, Percutaneous Endoscopic Approach (ICD-10-PCS; 2021-04-14)
PROC: 0WUF4JZ Supplement Abdominal Wall with Synthetic Substitute, Percutaneous Endoscopic Approach (ICD-10-PCS; principal; 2021-04-14 14:14)
DX: K43.2 Incisional hernia without obstruction or gangrene (principal); K56.7 Ileus, unspecified; E66.9 Obesity, unspecified; Z93.3 Colostomy status; Z68.39 Body mass index [BMI] 39.0-39.9, adult
CPT/HCPCS: Z7506; Z7508; 36415; 82948; 85025; 85610; 85730; 93005; A4215; A4618; A7000; C1758; C1781; G0378; J0131; J0690; J0694; J0780; J1100; J1170; J2001; J2250; J2270; J2405; J2704; J2710; J2765; J3010; J3480; J3490; J7120